=== PATIENT | male | born 1980 | race Two or more races ===

== ENCOUNTER 2024-06-05 11:18 | Emergency (ER) | payer OTHER ==
[2024-06-05] MEDS ORDERED: Sodium Chloride 0.9% 2.5 ML Syringe FLUSH PRN (11:29)
[2024-06-05] MEDS ORDERED: Sodium Chloride 0.9% 10 ML Syringe FLUSH PRN (11:29)
[2024-06-05] MEDS: fentaNYL 100 MCG/2 ML SDV IVPUSH ONE (11:30)
[2024-06-05] MEDS: Ondansetron 4 MG/2 ML SDV IVPUSH ONE (11:31)
[2024-06-05 11:35] LABS: HEMOGLOBIN 17.4 g/dL (14.0-18.0); MEAN CORPUSCULAR HEMOGLOBIN 31.1 pg (28.0-32.0); MEAN CORPUSCULAR HGB CONC 36.3 g/dL (32.0-36.0); MEAN CORPUSCULAR VOLUME 85.9 fL (83.0-99.0); MEAN PLATELET VOLUME 10.5 fL (9.4-12.4); PLATELET COUNT,PLT 362 K/uL (150-400); RED BLOOD CELL COUNT 5.59 M/uL (4.52-5.90); WHITE BLOOD CELL COUNT,WBC 11.45 K/uL (3.9-11.3)
[2024-06-05 11:54] LABS: INR 0.99 (0.86-1.11); PTT,PARTIAL THROMBOPLSTIN TIME 23.4 SEC (23.9-30.7)
[2024-06-05 11:58] LABS: A/G RATIO 1.1 (0.9-1.6); ALANINE AMINOTRANSFERASE,ALT 29 IU/L (14-63); ALKALINE PHOSPHATASE 79 U/L (46-116); ASPARTATE AMNIOTRANSFERASE,AST 32 IU/L (15-37); BILIRUBIN TOTAL 1.2 mg/dL (0.2-1.0); BLOOD UREA NITROGEN,BUN 16 mg/dL (7.0-18.0); CALCIUM 8.7 mg/dL (8.5-10.1); CARBON DIOXIDE,CO2 26.9 mmol/L (21.0-32.0); CHLORIDE,CL 103 mmol/L (98-107); CREATININE 0.9 mg/dL (0.8-1.3); GLUCOSE RANDOM 129 mg/dL (74-106); POTASSIUM,K 3.8 mmol/L (3.5-5.1); PROTEIN TOTAL,TP 7.6 g/dL (6.4-8.2); SODIUM,NA 140 mmol/L (136-148)
[2024-06-05 12:04] LABS: ESTIMATED GFR 109 mL/min (>60); ETHANOL BLOOD MEDICAL < 3.0 mg/dL
[2024-06-05] MEDS: Sodium Chloride 0.9% 500 ML IV SCH (12:05)
[2024-06-05] MEDS: HYDROmorphone 1 MG/ML Syringe IVPUSH ONE ×2 (12:05→12:07)
[2024-06-05 12:09] LABS: BAND ABSOLUTE MAN 5.84; SEG NEUTROPHILS ABSOLUTE MAN 4.58 K/uL (1.80-7.70); SEG NEUTROPHILS PERCENT MAN 40 % (41-71)
[2024-06-05 12:10] LABS: BASOPHILS ABSOLUTE MAN 0.11 K/uL (0.00-0.20); BASOPHILS PERCENT MAN 1 % (0-1); EOSINOPHILS ABSOLUTE MAN 0.23 K/uL (0.00-0.45); EOSINOPHILS PERCENT MAN 2 % (0-6); LYMPHOCYTES ABSOLUTE MAN 5.84 K/uL (1.00-4.80); LYMPHOCYTES PERCENT MAN 51 % (24-44); MONOCYTES ABSOLUTE MAN 0.69 K/uL (0.00-0.80); MONOCYTES PERCENT MAN 6 % (0-8)
[2024-06-05] MEDS: HYDROmorphone 1 MG/ML Syringe ONE (12:45)
[2024-06-05] MEDS: Lidocaine 1% 5 ML VIAL INJECT ONE (12:58)
[2024-06-05] MEDS: Diphtheria,Pertussis(Acell),Tetanus Vaccine 0.5 ML Syringe IM ONE (13:05)
== END 2024-06-05 14:55 ==
LOC: MW.ED 11:18
DX: S06.360A Traumatic hemorrhage of cerebrum, unspecified, without loss of consciousness, initial encounter (principal); S43.014A Anterior dislocation of right humerus, initial encounter; S01.81XA Laceration without foreign body of other part of head, initial encounter; W11.XXXA Fall on and from ladder, initial encounter; Z75.8 Other problems related to medical facilities and other health care
CPT/HCPCS: 12015; 23650; 36415; 70450; 71045; 72125; 73030; 73060; 80053; 80307; 85025; 85610; 85730; 90471; 90715; 96374; 96375; 99285; J1170; J2405; J3010; J7040; 99291; J3490